=== PATIENT | female | born 1990 | race Caucasian/White ===

== ENCOUNTER 2016-11-21 16:51 | Emergency (ER) | payer SELFPAY ==
[~2016-11-21] VITALS: Wt 65.0 kg
[2016-11-21] MEDS ORDERED: ONDANSETRON (ODT) 4 MG TAB ODT STA (17:59)
[2016-11-21] MEDS ORDERED: IBUPROFEN 600 MG TAB PO ONE (18:00)
[2016-11-21 18:07] LABS: URINE BLOOD (Dip) POC Trace-intact (NEGATIVE)
[2016-11-21] MEDS ORDERED: ACETAMINOPHEN 325 MG TAB PO ONE (18:30)
[2016-11-21 19:32] LABS: ADD UMIC YES; URINE BILIRUBIN (Dip) NEGATIVE (NEGATIVE); URINE BLOOD (Dip) 1+ (NEGATIVE); URINE COLOR LT. YELLOW (YELLOW); URINE GLUCOSE (Dip) NEGATIVE (NEGATIVE); URINE KETONES (Dip) 40 (NEGATIVE); URINE LEUKOCYTE ESTERASE (Dip) NEGATIVE (NEGATIVE); URINE NITRITE (Dip) NEGATIVE (NEGATIVE); URINE TOTAL PROTEIN (Dip) NEGATIVE (NEGATIVE); URINE UROBILINOGEN (Dip) 0.2 E.U./dL (0.1-1.0)
[2016-11-21 19:47] LABS: BACTERIA,URINE FEW; URINE RBCS 0-2 /HPF (0)
[2016-11-21 19:51] LABS: BASOPHILS % 0.2 % (0.0-2.0); EOSINOPHILS # 0.1 10^3/ul (0.0-0.5); EOSINOPHILS % 1.2 % (0.0-7.0); HEMATOCRIT 40.7 % (37.0-47.0); HEMOGLOBIN 13.8 g/dl (12.0-16.0); LYMPHOCYTES % 34.2 % (15.0-51.0); MEAN CORPUSCULAR HEMOGLOBIN 29.9 pg (29.0-33.0); MEAN CORPUSCULAR HGB CONC 33.9 g/dl (32.0-37.0); MEAN CORPUSCULAR VOLUME 88.1 fl (82.0-101.0); MONOCYTE # 0.6 10^3/ul (0.3-0.9); NEUTROPHILS % 57.4 % (39.0-77.0); PLATELET COUNT 269 10^3/UL (140-440); RED BLOOD COUNT 4.62 10^6/ul (4.20-5.40); RED CELL DISTRIBUTION WIDTH 12.5 % (11.5-14.5); UNCORRECTED WBC 8.7 10^3/ul (4.8-10.8); WHITE BLOOD COUNT 8.7 10^3/ul (4.8-10.8)
[2016-11-21 19:57] LABS: CONDITION 1
--- NOTE | 2016-11-21 20:00 | RADRPT ---
PROCEDURE: OB Ultrasound. CLINICAL INDICATION: Positive test. Left pelvic pain. TECHNIQUE: Ultrasound of the pelvis was performed with transabdominal and transvaginal sonography in the axial and sagittal planes. COMPARISON: No prior study is available for comparison. FINDINGS: There is no intrauterine gestational sac. The uterus measures 8.2 x 4.2 x 4.9 cm. There is a benig n Nabothian cysts in the cervix measuring 0.8 cm. There is no other uterine mass. Endometrial thic kness is normal measuring 16.4 mm. The right ovary appears normal measuring 4.1 x 2.8 x 3.7 cm. The left ovary is not visualized. Color Doppler and pulsed Doppler sonography demonstrate normal flow to the the right ovary. There is a tubular fluid filled structure in the left adnexa measuring 3.5 x 0.6 cm. There is no ot her pelvic mass. There is moderate free fluid in the cul-de-sac. IMPRESSION: 1. No intrauterine gestational sac. If the patient has a positive test, ectopic gestatio n cannot be excluded. 2. Benign Nabothian cyst of the cervix. 3. Left ovary not visualized. 4. Tubular fluid filled structure in the left adnexa, likely hydrosalpinx. Clinical correlation ad vised. 5. Moderate free fluid in the cul-de-sac. Nonspecific. Clinical correlation advised. RPTAT: QQ .Eduardo Arana MD, Date Time Electronically viewed and signed by .Eduardo Arana MD, on 11/21/2016 20:00 .R/
[2016-11-21] MEDS ORDERED: ACET325T33 PO (21:09)
--- NOTE | 2016-11-21 21:36 | ERD ---
ER Documentation Chief Complaint Date/Time DATE: 11/21/16 TIME: 21:21 Chief Complaint LOW ABD PAIN WITH MILD DYSURIA AND NAUSEA AND VOMITING. NO DIARRHEA HPI This is a 26-year-old female with no significant medical history complaining of lower abdominal pain since yesterday. Pain seems worse today and took Advil with adequate relief. Denies dysuria or vaginal bleeding or discharge. Patient is and last LMP was October 19. Patient had a Depo-Provera shot on October 01, 2017. Patient is sexually active with no production. Denies any fever, chest pain, shortness of breath, dizziness, headache. ROS All systems reviewed and are negative except as per history of present illness. Medications Home Meds Active Scripts Acetaminophen* (Tylenol*) 325 Mg Tablet, 2 TAB PO Q6 Y for PAIN AND OR ELEVATED TEMP, #20 TAB Prov:ASHLEYBUDDY 11/21/16 Allergies Allergies: Coded Allergies: No Known Allergy (Unverified , 11/21/16) PMhx/Soc Medical and Surgical Hx: pt denies Medical Hx, pt denies Surgical Hx Hx Alcohol Use: No Hx Substance Use: No Hx Tobacco Use: No Smoking Status: Never smoker Physical Exam Vitals Vital Signs Date Time Temp Pulse Resp B/P Pulse Ox O2 Delivery O2 Flow Rate FiO2 11/21/16 16:56 97.2 82 21 110/66 99 Physical Exam Physical Exam CONST: Well-developed, well-nourished, in no acute distress. HEENT: Atraumatic. Normal Conjunctiva. EOM intact. TM intact. External ear is normal. Clear oropharnyx without erythema. Moist mucous membranes. Supple. Full range of motion. No meningismus. No submandibular induration. RESP: Clear to auscultation bilaterally. No wheezing. CARDIO: Regular rate and rhythm, no murmurs ABD: Soft, diffuse tenderness in lower abdominal area. Normal bowel sounds. No McBurney's point tenderness. No guarding or rigidity. No peritoneal signs. SKIN: No petechiae or rashes BACK: No midline or flank tenderness EXT: No cyanosis or edema. Distal pulses equal and bilateral NEURO: Awake and alert, appropriate for age Result Diagram: 11/21/161939 Results 24 hrs Laboratory Tests Test 11/21/16 18:10 11/21/16 19:40 Bedside Urine Blood Trace-intact Bedside Urine Glucose (UA) Negative Bedside Urine Ketones (LAB) 2+ Bedside Urine Leukocyte Esterase (L Negative Bedside Urine Nitrite (LAB) Negative Bedside Urine Protein (LAB) Negative Bedside Urine pH (LAB) 6.5 Urine Bacteria FEW Urine Bilirubin NEGATIVE Urine Clarity CLEAR Urine Color LT. YELLOW Urine Epithelial Cells MODERATE Urine Glucose NEGATIVE% Urine Hemoglobin 1+ Urine Ketones 40 Urine Leukocyte Esterase NEGATIVE Urine Microscopic RBC 0-2/HPF Urine Microscopic WBC 0-2/HPF Urine Nitrite NEGATIVE Urine Specific Hatch 1.020 Urine Total Protein NEGATIVE Urine Urobilinogen 0.2 E.U./dL Urine pH 6.5 Basophils # 0.010^3/ul Basophils % 0.2% Beta HCG, Quantitative 169.9mIU/ml Eosinophils # 0.110^3/ul Eosinophils % 1.2% Hematocrit 40.7% Hemoglobin 13.8g/dl Lymphocytes # 3.010^3/ul Lymphocytes % 34.2% Mean Corpuscular Hemoglobin 29.9pg Mean Corpuscular Hemoglobin Concent 33.9g/dl Mean Corpuscular Volume 88.1fl Mean Platelet Volume 8.0fl Monocytes # 0.610^3/ul Monocytes % 7.0% Neutrophils # 5.010^3/ul Neutrophils % 57.4% Nucleated Red Blood Cells # 0.010^3/ul Nucleated Red Blood Cells % 0.0/100WBC Platelet Count 27205^3/UL Red Blood Count 4.6210^6/ul Red Cell Distribution Width 12.5% White Blood Count 8.710^3/ul Current Medications Medications (Trade) Dose Ordered Sig/Pat Route PRN Reason Start Time Stop Time Status Last Admin Dose Admin Ibuprofen (Motrin) 600 mg ONCE ONCE PO 11/21/16 18:00 11/21/16 18:26 DC Ondansetron HCl (Zofran Odt) 4 mg ONCE STAT ODT 11/21/16 17:59 11/21/16 18:01 DC 11/21/16 18:18 Acetaminophen (Tylenol Tab) 650 mg ONCE ONCE PO 11/21/16 18:30 11/21/16 18:31 DC 11/21/16 18:21 PROCEDURE: OB Ultrasound. CLINICAL INDICATION: Positive test. Left pelvic pain. TECHNIQUE: Ultrasound of the pelvis was performed with transabdominal and transvaginal sonography in the axial and sagittal planes. COMPARISON: No prior study is available for comparison. FINDINGS: There is no intrauterine gestational sac. The uterus measures 8.2 x 4.2 x 4.9 cm. There is a benign Nabothian cysts in the cervix measuring 0.8 cm. There is no other uterine mass. Endometrial thickness is normal measuring 16.4 mm. The right ovary appears normal measuring 4.1 x 2.8 x 3.7 cm. The left ovary is not visualized. Color Doppler and pulsed Doppler sonography demonstrate normal flow to the the right ovary. There is a tubular fluid filled structure in the left adnexa measuring 3.5 x 0.6 cm. There is no other pelvic mass. There is moderate free fluid in the cul -de-sac. IMPRESSION: 1. No intrauterine gestational sac. If the patient has a positive test, ectopic gestation cannot be excluded. 2. Benign Nabothian cyst of the cervix. 3. Left ovary not visualized. 4. Tubular fluid filled structure in the left adnexa, likely hydrosalpinx. Clinical correlation advised. 5. Moderate free fluid in the cul-de-sac. Nonspecific. Clinical correlation advised. RPTAT: QQ .Eduardo Arana MD, MD Date Time Electronically viewed and signed by .Eduardo Arana MD, on 11/21/2016 20:00 Procedures/[facility] EMERGENCY DEPARTMENT COURSE/MEDICAL DECISION MAKING This is a 26-year-old female who comes to the emergency room secondary to complaints of lower abdominal pain for 2 days. The patient was given Tylenol in the department. On re-evaluation, the patient was feeling improved. UA shows ketones +2 and trace blood. Beta hCG is 169.9. OB ultrasound was done and was interpreted by the radiologist. Finding of concern is a tubular fluid-filled structure in the left adnexa likely hydrosalpinx. Spoke with the radiologist production line solderer Dr. Rios regarding the ultrasound and lab results. Dr. Rios advised to tell the patient come back in 48 hours for another redraw of beta hCG. Differential diagnoses considered, included but not limited to ectopic , pelvic inflammatory disease, UTI, appendicitis, colitis, diverticulitis, I have discussed the lab results and diagnostic findings with the patient and answered any questions or concerns. The patient was discharged for outpatient management with a prescription for Tylenol. The patient was advised to followup with their PMD in 1-2 days and to return to the Emergency Department in 2 days for an ECG blood draw or sooner if there are any new or worsening symptoms. The patient understood and agreed with the diagnosis, treatment and plan. The patient is stable for discharge at this time. Departure Diagnosis: Primary Impression: Abdominal pain Abdominal location: lower abdomen, unspecified Qualified Code: R10.30 - Lower abdominal pain Condition: Good Patient Instructions: Abdominal Pain Referrals: COMMUNITY CLINICS YOU HAVE RECEIVED A MEDICAL SCREENING EXAM AND THE RESULTS INDICATE THAT YOU DO NOT HAVE A CONDITION THAT REQUIRES URGENT TREATMENT IN THE EMERGENCY DEPARTMENT. FURTHER EVALUATION AND TREATMENT OF YOUR CONDITION CAN WAIT UNTIL YOU ARE SEEN IN YOUR DOCTORS OFFICE WITHIN THE NEXT 1-2 DAYS. IT IS YOUR RESPONSIBILITY TO MAKE AN APPOINTMENT FOR FOLOW-UP CARE. IF YOU HAVE A PRIMARY DOCTOR --you should call your primary doctor and schedule an appointment IF YOU DO NOT HAVE A PRIMARY DOCTOR YOU CAN CALL OUR PHYSICIAN REFERRAL HOTLINE AT IF YOU CAN NOT AFFORD TO SEE A PHYSICIAN YOU CAN CHOSE FROM THE FOLLOWING [facility] [address] [facility]. [facility] [address] [facility]. [facility] [address] [facility] [facility] [address] [facility]. [facility] [address] [facility] [facility]. [address] [facility]. [facility] YOU HAVE RECEIVED A MEDICAL SCREENING EXAM AND THE RESULTS INDICATE THAT YOU DO NOT HAVE A CONDITION THAT REQUIRES URGENT TREATMENT IN THE EMERGENCY DEPARTMENT. FURTHER EVALUATION AND TREATMENT OF YOUR CONDITION CAN WAIT UNTIL YOU ARE SEEN IN YOUR DOCTORS OFFICE WITHIN THE NEXT 1-2 DAYS. IT IS YOUR RESPONSIBILITY TO MAKE AN APPOINTMENT FOR FOLOW-UP CARE. IF YOU HAVE A PRIMARY DOCTOR --you should call your primary doctor and schedule and appointment IF YOU DO NOT HAVE A PRIMARY DOCTOR YOU CAN CALL OUR PHYSICIAN REFERRAL HOTLINE AT . IF YOU CAN NOT AFFORD TO SEE A PHYSICIAN YOU CAN CHOSE FROM THE FOLLOWING [facility] INSTITUTIONS: [facility] [address] [place] [address] [facility] [address] [place] [address] [facility] [address] [place] [address] Additional Instructions: Regrese a estas instalaciones dentro de [facility] para un examen de seguimiento.Regrese antes si slater condicin se empeora. Return to this facility in 2 DAYS for a follow-up exam.Return sooner if your condition worsens. BUDDY RAMIREZ Nov 21, 2016 21:35
== END 2016-11-21 21:38 | disposition home or self-care (01) ==
LOC: FTE 16:51
DX: R10.30 Lower abdominal pain, unspecified (principal); R10.2 Pelvic and perineal pain; R11.2 Nausea with vomiting, unspecified; Z33.1 Pregnant state, incidental
CPT/HCPCS: 76801; 76817; 81001; 81003; 84702; 85025; 86900; 86901; 87086

== ENCOUNTER 2016-11-23 16:41 | Emergency (ER) | payer MEDICAID ==
[~2016-11-23] VITALS: Wt 57.2 kg
[~2016-11-23 16:41] MED LIST: ACET325T33 PO
--- NOTE | 2016-11-23 20:17 | RADRPT ---
PROCEDURE: US OB. CLINICAL INDICATION: Positive . Left pelvic pain TECHNIQUE: Transabdominal and transvaginal views of the pelvis are available for review. COMPARISON: Ultrasound 11/21/2016 FINDINGS: Uterus: Normal. There is no evidence of myometrial mass. Endometrial cavity: No intrauterine is identified, the thickness is increased measuring 1 4 mm. Right ovary / adnexa: Ovarian size is normal measuring 4.9 x 3 x 3.2 cm and there is no evidence of adnexal mass. Normal blood flow on Doppler interrogation is present. Left ovary/adnexa: Ovarian size is normal measuring 3.1 x 1.9 x 2 cm with no evidence of ovarian or adnexal mass. Normal blood flow seen on Doppler interrogation. Dilated tubular fluid filled struct ure consistent with hydrosalpinx is again noted Cul-de-sac: Previously seen free fluid has resolved. Nabothian cysts seen on the prior study is no t identified.. RPTAT:HJJR IMPRESSION: 1. No intrauterine identified. Ectopic is not excluded, but there are no suspic ious findings at this time. Correlation with serial beta HCGs is suggested with followup as clinica lly indicated. 2. Left sided hydrosalpinx is again noted as seen on 11/21/2016. 3. Previously identified free fluid is no longer present. Physician Lukas Date Time Electronically viewed and signed by Physician Lukas on 11/23/2016 20:17 /
--- NOTE | 2016-11-23 22:51 | ERD ---
ER Documentation Chief Complaint Date/Time DATE: 11/23/16 TIME: 22:43 Chief Complaint here for recheck blood work for hcg. no vag bleed no abd pain HPI 26-year-old female with no significant past medical history presents to the ED complaining of previous left-sided abdominal pain that started 2 days ago but has now resolved. States that initially the left-sided pelvic pain was sharp and rates it a 3 out of 10. She is instructed to come back to the ED for further evaluation in 2 days. Patient was seen here and was evaluated for her and there was no IUP seen at that time. Beta hCG was 196 at that time. Patient's last menses was October 19, 2016. She is a . States that she goes to the [facility] but is unsure of her PRESSING DEPARTMENT SUPERVISOR's name. Denies any chest pain, shortness of breath, diarrhea, nausea, vomiting. ROS All systems reviewed and are negative except as per history of present illness. Medications Home Meds Active Scripts Acetaminophen* (Tylenol*) 325 Mg Tablet, 2 TAB PO Q6 Y for PAIN AND OR ELEVATED TEMP, #20 TAB Prov:BUDDY RAMIREZ 11/21/16 Allergies Allergies: Coded Allergies: No Known Allergy (Unverified , 11/21/16) PMhx/Soc Medical and Surgical Hx: pt denies Medical Hx, pt denies Surgical Hx History of Surgery: No Anesthesia Reaction: No Hx Neurological Disorder: No Hx Respiratory Disorders: No Hx Cardiac Disorders: No Hx Psychiatric Problems: No Hx Miscellaneous Medical Probl: No Hx Alcohol Use: No Hx Substance Use: No Hx Tobacco Use: No Smoking Status: Never smoker Physical Exam Vitals Temp 97.9 Pulse 91 SBP 120 DBP 71 Resp 20 O2 Sat 98 Pain Intensity 3 Physical Exam Const: Sas-ohc-hrweqiimw, well-nourished. In no acute distress. Head: Atraumatic, normocephalic Eyes: Normal Conjunctiva without injection. No purulent discharge. ENT: Normal external ear, nose. Moist oropharynx without tonsillar exudates. Non -erythematous pharynx. Uvula midline. No drooling. No trismus. Neck: No cervical midline tenderness. Full range of motion. No meningismus. No cervical lymphadenopathy. No JVD. Resp: Clear to auscultation bilaterally. No wheezing, rhonchi, rales, or crackles. No accessory muscle use. No retractions. Cardio: Regular rate and rhythm. No murmurs, rubs or gallops. Abd: Soft, no abdominal or pelvic tenderness, non distended. Normal bowel sounds. No palpable masses. No rebound tenderness. No guarding. Negative McBurney's point. Negative psoas sign. Negative obturator sign. Skin: No petechiae or rashes Back: No midline tenderness. No CVA tenderness. Ext: No cyanosis, or edema. Neur: Awake and alert. Normal gait. Normal coordination. Psych: Normal Mood and Affect Results 24 hrs Laboratory Tests Test 11/23/16 19:25 Beta HCG, Quantitative 509.5mIU/ml Procedures/MDM 26-year-old female with no significant past medical history is a presents the ED complaining of left pelvic pain that started 2 days ago but has now resolved. Patient is afebrile and nontoxic-appearing. Patient has normal vital signs. An ultrasound, beta-hCG, CBC, type and RH, UA was ordered to evaluate patient. beta Hc has now increased to 509 PROCEDURE: US OB. CLINICAL INDICATION: Positive . Left pelvic pain TECHNIQUE: Transabdominal and transvaginal views of the pelvis are available for review. COMPARISON: Ultrasound 11/21/2016 FINDINGS: Uterus: Normal. There is no evidence of myometrial mass. Endometrial cavity: No intrauterine is identified, the thickness is increased measuring 14 mm. Right ovary / adnexa: Ovarian size is normal measuring 4.9 x 3 x 3.2 cm and there is no evidence of adnexal mass. Normal blood flow on Doppler interrogation is present. Left ovary/adnexa: Ovarian size is normal measuring 3.1 x 1.9 x 2 cm with no evidence of ovarian or adnexal mass. Normal blood flow seen on Doppler interrogation. Dilated tubular fluid filled structure consistent with hydrosalpinx is again noted Cul-de-sac: Previously seen free fluid has resolved. Nabothian cysts seen on the prior study is not identified.. RPTAT:HJJR IMPRESSION: 1. No intrauterine identified. Ectopic is not excluded, but there are no suspicious findings at this time. Correlation with serial beta HCGs is suggested with followup as clinically indicated. 2. Left sided hydrosalpinx is again noted as seen on 11/21/2016. 3. Previously identified free fluid is no longer present. Patient's bleeding symptoms have stabilized while in the department. This case has been discussed with the laborist building construction foreman, Dr. Schultz. Patient's beta hCG is doubling within the last 48 hours and IUP is still not seen on the ultrasound, patient was instructed to return to the ED in 3 days for a repeat abdomen exam. Patient no longer has any pelvic pain. No tenderness palpation of the abdomen. No vaginal bleeding noted. Patient is hemodynamically stable. Patient is appropriate for outpatient management. Patient should also follow- up with her PRESSING DEPARTMENT SUPERVISOR for a repeat ultrasound in 1 week per recommendation of Dr. Schultz. Low suspicion for symptomatic anemia, sepsis, PID, appendicitis, ovarian torsion, tubo-ovarian abscess, surgical abdomen, or other emergent conditions. Patient was educated that there is a risk for threatened . Patient to follow up with PRESSING DEPARTMENT SUPERVISOR in 2 days for further evaluation and treatment. Patient is to return sooner to the ED for any worsening symptoms. Patient's questions were answered. Patient understood and agreed with discharge plan. Departure Diagnosis: Primary Impression: Pelvic pain in Condition: Stable Patient Instructions: Abdominal Pain, Early , Possible Miscarriage ( Threatened ) Referrals: COMMUNITY CLINICS YOU HAVE RECEIVED A MEDICAL SCREENING EXAM AND THE RESULTS INDICATE THAT YOU DO NOT HAVE A CONDITION THAT REQUIRES URGENT TREATMENT IN THE EMERGENCY DEPARTMENT. FURTHER EVALUATION AND TREATMENT OF YOUR CONDITION CAN WAIT UNTIL YOU ARE SEEN IN YOUR DOCTORS OFFICE WITHIN THE NEXT 1-2 DAYS. IT IS YOUR RESPONSIBILITY TO MAKE AN APPOINTMENT FOR FOLOW-UP CARE. IF YOU HAVE A PRIMARY DOCTOR --you should call your primary doctor and schedule an appointment IF YOU DO NOT HAVE A PRIMARY DOCTOR YOU CAN CALL OUR PHYSICIAN REFERRAL HOTLINE AT IF YOU CAN NOT AFFORD TO SEE A PHYSICIAN YOU CAN CHOSE FROM THE FOLLOWING [facility] CLINICS [facility] [address] [facility] [address] [facility] [address] [facility] [address] [facility] [address] [facility]. [facility] [address] [facility]. [facility] YOU HAVE RECEIVED A MEDICAL SCREENING EXAM AND THE RESULTS INDICATE THAT YOU DO NOT HAVE A CONDITION THAT REQUIRES URGENT TREATMENT IN THE EMERGENCY DEPARTMENT. FURTHER EVALUATION AND TREATMENT OF YOUR CONDITION CAN WAIT UNTIL YOU ARE SEEN IN YOUR DOCTORS OFFICE WITHIN THE NEXT 1-2 DAYS. IT IS YOUR RESPONSIBILITY TO MAKE AN APPOINTMENT FOR FOLOW-UP CARE. IF YOU HAVE A PRIMARY DOCTOR --you should call your primary doctor and schedule and appointment IF YOU DO NOT HAVE A PRIMARY DOCTOR YOU CAN CALL OUR PHYSICIAN REFERRAL HOTLINE AT . IF YOU CAN NOT AFFORD TO SEE A PHYSICIAN YOU CAN CHOSE FROM THE FOLLOWING [facility]: [facility] [address] [place] [address] [facility] [address] [place] [address] [facility] [address] [place] [address] PRESSING DEPARTMENT SUPERVISOR [place] [address] [facility] [address] [place] [address] OFFICE FAX [facility] [address] [place], [place] [id number] [facility] [address] [place] [address] [address] [facility] [address] [facility] [address] [place] [address] [facility] [address] [place], [place] [address] [address] [facility] [address] - [address] [address] [address], [facility] [address] [address], BHARATHI [address] [facility]. [address], [place] [address] [facility] HERNANDE[address] [address] [place] [address] [facility] Hours: 8:00 am - 5:00 pm Additional Instructions: FOLLOW UP WITH YOUR PRESSING DEPARTMENT SUPERVISOR in 2 days for further evaluation and treatment to repeat ultrasound within 1 week to rule out ectopic . Information has been provided for you. You can also return to the ER in 3 days for a repeat abdominal exam and further evaluation per laborist. Return to this facility immediately if you are not improving as expected such as worsening abdominal pain, fever, vaginal bleeding. MINESH REYNOLDS PA-C Nov 23, 2016 22:51 MINESH REYNOLDS PA-C Nov 23, 2016 22:51
== END 2016-11-23 22:35 | disposition left against medical advice (07) ==
LOC: FTE 16:41
DX: O26.891 Other specified pregnancy related conditions, first trimester (principal); R10.2 Pelvic and perineal pain; Z3A.00 Weeks of gestation of pregnancy not specified
CPT/HCPCS: 36415; 76801; 76817; 84702; Z7502

== ENCOUNTER 2017-01-12 20:30 | Emergency (ER) | payer MEDICAID, OTHER ==
[~2017-01-12] VITALS: Ht 154.9 cm; Wt 54.5 kg
[2017-01-12 20:38] VITALS: Ht 154.9 cm; Wt 54.5 kg
[2017-01-12] MEDS ORDERED: SOD CHLORIDE 0.9% 1,000 ML IV ONE (21:30)
[2017-01-12] MEDS ORDERED: METHYLPREDNISOLONE 125 MG INJ IV ONE (21:30)
[2017-01-12] MEDS ORDERED: FAMOTIDINE 20 MG INJ IV ONE (21:30)
[2017-01-12] MEDS ORDERED: DIPHENHYDRAMINE 50 MG INJ IV ONE (21:30)
[2017-01-12] MEDS ORDERED: BEN25 PO (21:35)
[2017-01-12] MEDS ORDERED: FAMO-18 PO (21:35)
[2017-01-12] MEDS ORDERED: PRED20TA PO (21:35)
--- NOTE | 2017-01-12 21:35 | ERD ---
ER Documentation Chief Complaint Date/Time DATE: 01/12/17 Chief Complaint Lior DU The patient is a 26-year-old 12-week female, A1, who presents to the Emergency Department with complaint of urticaria. The patient reports that today, while at work, at approximately 3:00 pm, she developed a diffuse urticarial rash to her body. She was informed of the eruption by her coworker, and therefore went home. However, when her symptoms did not improve, she decided to present to the Emergency Department for further evaluation. Patient reports that she has had multiple prior episodes of urticaria in the past. She has seen her doctor many times before for evaluation, but no source has been found. She denies any known food or drink allergies, though notes a sensitivity to red meat. However, she notes she did not ingest any red meat today. She denies any new foods or drinks exposure. Denies usage of any new soaps, detergents, lotions or shampoos. Denies new clothing. Denies exposure to new plants or animals. Denies lip swelling or tongue swelling. Denies chest pain, palpitations or shortness of breath. Denies wheezing or stridor. Denies difficulty opening or closing her mouth. Denies difficulty tolerating her oral secretions or excessive drooling. Eyes any change in phonation. ROS All systems reviewed and are negative except as per history of present illness. Medications Home Meds Active Scripts Diphenhydramine Hcl* (Benadryl*) 25 Mg Cap, 25 MG PO Q6 for 5 Days, CAP Prov:SYDNEY PLASCENCIA PA-C 01/12/17 Famotidine* (Pepcid*) 20 Mg Tablet, 20 MG PO BID for 5 Days, TAB Prov:SYDNEY PLASCENCIA PA-C 01/12/17 Prednisone* (Prednisone*) 20 Mg Tab, 40 MG PO DAILY for 5 Days, TAB Prov:SYDNEY PLASCENCIA PA-C 01/12/17 Acetaminophen* (Tylenol*) 325 Mg Tablet, 2 TAB PO Q6 Y for PAIN AND OR ELEVATED TEMP, #20 TAB Prov:BUDDY RAMIREZ 11/21/16 Allergies Allergies: Coded Allergies: No Known Allergy (Unverified , 01/12/17) PMhx/Soc Medical and Surgical Hx: pt denies Medical Hx, pt denies Surgical Hx History of Surgery: No Anesthesia Reaction: No Hx Neurological Disorder: No Hx Respiratory Disorders: No Hx Cardiac Disorders: No Hx Psychiatric Problems: No Hx Miscellaneous Medical Probl: No Hx Alcohol Use: No Hx Substance Use: No Hx Tobacco Use: No Smoking Status: Never smoker Physical Exam Vitals Vital Signs Date Time Temp Pulse Resp B/P Pulse Ox O2 Delivery O2 Flow Rate FiO2 01/12/17 20:38 98.7 85 20 129/64 99 Physical Exam GENERAL: Well-developed, well-nourished, female, in no acute respiratory distress. HEENT: Head is normocephalic, atraumatic. No scleral pallor or icterus. Pupils equal, round and reactive to light. Extraocular movements intact. Conjunctiva pink. Moist mucous membranes. No pharyngeal erythema or exudates. Clear oropharynx. No lip or tongue swelling. Uvula is midline. No trismus. No stridor. No excessive drooling. No pooling of oral secretions. Phonation is normal. NECK: Supple. No masses, no tenderness, no lymphadenopathy. Trachea midline. No nuchal rigidity. No meningismus. RESPIRATORY: Lungs are clear to auscultation bilaterally. No rales, rhonchi or wheezing. Equal breath sounds. Normal expiratory effort. Speaking in full sentences. No accessory muscle use. CARDIOVASCULAR: Regular rate and rhythm. S1 and S2 normal. No murmurs, rubs, or gallops. GASTROINTESTINAL: Abdomen is soft, non-tender, and non-distended. EXTREMITIES: No clubbing, cyanosis, or edema. Normal skin perfusion. Moving all extremities. No focal swelling or erythema. NEUROLOGIC: The patient is alert, awake, and oriented x 3. No focal neurologic deficits. INTEGUMENT: Erythematous, raised regions of urticaria with some areas of coalescence to the neck, trunk and extremities. No lip or tongue swelling. No crepitus. No skin lesions. No petechiae or purpura. No vesicles, ulcerations, bullae. No pain out of proportion to examination. No skin sloughing. PSYCHIATRIC: Cooperative. Appropriate. Results 24 hrs Current Medications Medications (Trade) Dose Ordered Sig/Pat Route PRN Reason Start Time Stop Time Status Last Admin Dose Admin Diphenhydramine HCl (Benadryl) 50 mg ONCE ONCE IV 01/12/17 21:30 01/12/17 21:34 DC Famotidine (Pepcid Iv) 20 mg ONCE ONCE IV 01/12/17 21:30 01/12/17 21:34 DC Methylprednisolone Sodium Succinate 125 mg 125 mg ONCE ONCE IV 01/12/17 21:30 01/12/17 21:34 DC Sodium Chloride (NS) 1,000 ml @ 1,000 mls/hr Q1H ONCE IV 01/12/17 21:30 01/12/17 21:34 DC Procedures/MDM This is a 26-year-old female patient presenting to the Emergency Department with complaint of an urticarial skin rash. The patient had notable raised, regions of urticaria, with some reasons of coalescence on her trunk, neck, and extremities on physical examination. However, the patient's oropharynx and airway were patent, and exhibited no breathing difficulties, wheezing, tongue swelling or lip swelling. No evidence of angioedema, airway compromise, inability to handle oral secretions or stridor. Patient's phonation was normal. No wheezing auscultated on physical examination. Circulation was appropriate, with no systemic signs of anaphylaxis, no hypotension. No associated purpura or petechiae. The differential diagnosis includes, but is not limited to, allergic reaction, insect bite, fungal infection, cellulitis, MRSA, impetigo, shingles, herpes simplex virus, burn, abscess, dermatitis, viral syndrome, candidiasis, medication reaction, Jimenez Jam syndrome, epidermolysis bullosa, toxic epidermal necrolysis, meningococcemia, toxic shock syndrome, hand foot and mouth disease, mononucleosis, heat rash. No evidence of crepitus, skip lesions or pain away from site of rash, concerning for necrotizing fasciitis or myositis. No mucosal involvement or appearance concerning for Dar Jam's syndrome or TENS. No airway compromise or concern for anaphylaxis. No indication of angioedema. After rest, the patient has no new complaints, and the patient remains stable with appropriate vital signs and no signs of respiratory distress. IV Benadryl, Solu-Medrol and Pepcid were ordered (and recommended by Dr. Barber, ED attending physician), but patient noted that she did not want to wait for treatment in the ED and requested to be discharged home with oral medications. Upon my review and interpretation of the patient's presentation and overall ER course, I believe the patient's symptoms are most consistent with urticaria. At this time, the patient is in stable condition with stable vital signs and therefore can be discharged home with prescriptions for Prednisone, Pepcid and Benadryl, and strict return precautions for signs of deteriorating or worsening condition. She is advised to follow up with her primary care provider within 1- 2 days for reevaluation and further management, or return to the ER sooner for worsening symptoms. I shared my medical decision making and plan with the patient at length and in great detail, and she verbally understands and agrees with the plan for further observation and care as an outpatient. At the time of discharge all questions were answered. Departure Diagnosis: Primary Impression: Urticaria Condition: Stable Patient Instructions: Allergic Reaction, Other (General), Hives Additional Instructions: Call your primary care doctor TOMORROW for an appointment during the next 1-2 days.See the doctor sooner or return here if your condition worsens before your appointment time. SYDNEY PLASCENCIA PA-C Jan 12, 2017 21:34
[2017-01-13] MEDS ORDERED: FAMO-18 PO (09:36)
[2017-01-13] MEDS ORDERED: BEN25 PO (09:36)
[2017-01-13] MEDS ORDERED: PRED20TA PO (09:37)
== END 2017-01-12 22:36 | disposition home or self-care (01) ==
LOC: FTE 20:30
DX: O99.711 Diseases of the skin and subcutaneous tissue complicating pregnancy, first trimester (principal); L50.0 Allergic urticaria; Z3A.12 12 weeks gestation of pregnancy
CPT/HCPCS: 99283; J7030

== ENCOUNTER 2017-01-13 06:14 | Emergency (ER) | payer MEDICAID ==
[~2017-01-13] VITALS: Ht 154.9 cm; Wt 54.5 kg
[~2017-01-13 06:14] MED LIST changes: +BEN25 PO; +FAMO-18 PO; +PRED20TA PO
[2017-01-13 06:20] VITALS: Ht 154.9 cm; Wt 54.5 kg
[2017-01-13] MEDS ORDERED: FAMOTIDINE 20 MG INJ IV ONE (08:00)
[2017-01-13] MEDS ORDERED: METHYLPREDNISOLONE 125 MG INJ IV ONE (08:00)
[2017-01-13] MEDS ORDERED: DIPHENHYDRAMINE 50 MG INJ IV ONE (08:00)
--- NOTE | 2017-01-13 08:26 | ERD ---
ER Documentation Chief Complaint Date/Time DATE: 01/13/17 TIME: 08:22 Chief Complaint body rash x 1 day. was here last night for same. 12 weeks HPI This a 26-year-old female presents the emergency department today complaining of a rash all over her body that started yesterday at 3 PM. Patient states she has had in the past. 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 Denies any fevers or chills, shortness of breath or difficulty breathing. States she is approximately 12 weeks . ROS All systems reviewed and are negative except as per history of present illness. Medications Home Meds Active Scripts Prednisone* (Prednisone*) 20 Mg Tab, 40 MG PO DAILY for 4 Days, TAB Prov:ANA MOSQUEDA PA-C 01/13/17 Famotidine* (Pepcid*) 20 Mg Tablet, 20 MG PO BID for 14 Days, TAB Prov:ANA MOSQUEDA PA-C 01/13/17 Diphenhydramine Hcl* (Benadryl*) 25 Mg Cap, 25 MG PO Q6, #30 CAP Prov:ANA MOSQUEDA PA-C 01/13/17 Diphenhydramine Hcl* (Benadryl*) 25 Mg Cap, 25 MG PO Q6 for 5 Days, CAP Prov:SYDNEY PLASCENCIA PA-C 01/12/17 Famotidine* (Pepcid*) 20 Mg Tablet, 20 MG PO BID for 5 Days, TAB Prov:SYDNEY PLASCENCIA PA-C 01/12/17 Prednisone* (Prednisone*) 20 Mg Tab, 40 MG PO DAILY for 5 Days, TAB Prov:SYDNEY PLASCENCIAC 01/12/17 Acetaminophen* (Tylenol*) 325 Mg Tablet, 2 TAB PO Q6 Y for PAIN AND OR ELEVATED TEMP, #20 TAB Prov:BUDDY RAMIREZ 11/21/16 Allergies Allergies: Coded Allergies: No Known Allergy (Unverified , 01/13/17) PMhx/Soc History of Surgery: No Anesthesia Reaction: No Hx Neurological Disorder: No Hx Respiratory Disorders: No Hx Cardiac Disorders: No Hx Psychiatric Problems: No Hx Miscellaneous Medical Probl: No Hx Alcohol Use: No Hx Substance Use: No Hx Tobacco Use: No Physical Exam Vitals Vital Signs Date Time Temp Pulse Resp B/P Pulse Ox O2 Delivery O2 Flow Rate FiO2 01/13/17 06:20 96.9 81 20 92/61 100 Physical Exam Const: Talkative, well-appearing, no acute distress Head: Atraumatic Eyes: Normal Conjunctiva ENT: Normal External Ears, Nose and Mouth. No tongue or lip swelling Neck: Full range of motion..~ No meningismus. Resp: Clear to auscultation bilaterally Cardio: Regular rate and rhythm, no murmurs Abd: Soft, non tender, non distended. Normal bowel sounds Skin: Erythematous raised regions of urticaria on neck, trunk, back and bilateral extremities. Back: No midline or flank tenderness Ext: No cyanosis, or edema Neur: Awake and alert Psych: Normal Mood and Affect Results 24 hrs Current Medications Medications (Trade) Dose Ordered Sig/Pat Route PRN Reason Start Time Stop Time Status Last Admin Dose Admin Methylprednisolone Sodium Succinate (Solu-Medrol) 125 mg ONCE ONCE IV 01/13/17 08:00 01/13/17 08:01 DC 01/13/17 08:36 Famotidine (Pepcid Iv) 20 mg ONCE ONCE IV 01/13/17 08:00 01/13/17 08:01 DC 01/13/17 08:36 Diphenhydramine HCl (Benadryl) 25 mg ONCE ONCE IV 01/13/17 08:00 01/13/17 08:01 DC Procedures/MDM This a 26-year-old female who presents to the emergency department today complaining of a rash that started yesterday. On physical exam patient appears to have diffuse urticaria. She is approximately 12 weeks . Was recommended yesterday by both the provider that saw her yesterday and Dr. Barber that she received IV Benadryl, Solu-Medrol and Pepcid. Patient left without receiving this medication and she left without being discharged home with any medication. Patient did indicate that the rash has spread onto her back. She is afebrile and otherwise well-appearing. She is in no acute distress. There is no evidence of anaphylaxis or angioedema. Low suspicion for cellulitis, fungal infection, insect bite, shingles, abscess, viral syndrome, SJS, meningitis, sepsis or deep space infection Patient was given IV Solu-Medrol and Pepcid here in the emergency department. Per the nurse patient refused Benadryl as she was driving herself and did not want to be drowsy. Patient's urticaria improved here in the emergency department Patient will be given a prescription for prednisone, Pepcid and Benadryl for home. Patient was instructed to follow-up with her [employer] as well. Patient is on her first trimester. At this time the patient is stable for discharge and outpatient management. Patient should follow up with their PCP in the next 1-2 days. They may return to the emergency department sooner for any persistent or worsening of symptoms. Patient understood and agreed with the plan. Discussed the patient with Dr. Koehler and he is in agreement with the plan. Departure Diagnosis: Primary Impression: Rash and other nonspecific skin eruption Condition: ANA Agustin PA-C Jan 13, 2017 08:26
[2017-01-13] MEDS ORDERED: BEN25 PO (09:36)
[2017-01-13] MEDS ORDERED: FAMO-18 PO (09:36)
[2017-01-13] MEDS ORDERED: PRED20TA PO (09:37)
[2017-01-13 10:14] VITALS: BP 92/62; PULSE 83; RESP 18
== END 2017-01-13 10:14 | disposition home or self-care (01) ==
LOC: FTE 06:14
DX: R21 Rash and other nonspecific skin eruption (principal)
CPT/HCPCS: 96374; J2930; Z7502; Z7610; J1200

== ENCOUNTER 2017-12-14 07:53 | Emergency (ER) | END 2017-12-14 08:38 | disposition home or self-care (01) ==